=== PATIENT | male | born 1970 | race Caucasian/White ===

== ENCOUNTER → 2020-01-05 | Outpatient (CLI) | payer BC ==
[2020-01-05 16:43] LABS: HEMATOCRIT 38.5 % (42.0-52.0); HEMOGLOBIN 11.5 g/dl (13.5-18.0); MEAN CELL VOLUME 75 fl (80.0-100.0); MEAN CORPUSCULAR HEMOGLOBIN 22 pg (27.0-31.0); MEAN CORPUSCULAR HGB CONC 30 g/dl (33.0-37.0); MEAN PLATELET VOLUME 10.5 fl (7.4-10.4); PLATELET COUNT 274 K/mm3 (130-400); RED BLOOD COUNT 5.13 M/mm3 (4.20-5.60); REDCELL DISTRIBUTION WIDTH-CV 20.6 % (11.5-14.5)
[2020-01-05 17:07] LABS: ERYTHROCYTE SEDIMENTATION RATE 6 mm/hr (0-15)
== END ==
LOC: COL.LAB 12:45
PROVIDERS: Orthopaedic Surgery
DX: M79.89 Other specified soft tissue disorders (principal); Z98.890 Other specified postprocedural states

== ENCOUNTER → 2020-01-15 | Outpatient (CLI) | payer BC ==
[2020-01-15 10:24] LABS: SYNOVIAL FL. MONONUCLEAR 77.1 % (0-75); SYNOVIAL FLUID RBC 3000 /mm3 (0-0); SYNOVIAL FLUID WBC 524 /mm3 (200-600)
[2020-01-15 10:27] LABS: SYNOVIAL FLUID APPEARANCE CLEAR; SYNOVIAL FLUID COLOR YELLOW
== END ==
LOC: COL.RAD 09:28
PROVIDERS: Orthopaedic Surgery
DX: M25.512 Pain in left shoulder (principal)